=== PATIENT | male | born 1930 | race Hispanic/Latino ===

== ENCOUNTER → 2018-10-23 | Outpatient (CLI) | payer MEDICARE, MEDICAID | END | disposition home or self-care (01) | LOC: OIH 13:28 | PROVIDERS: ATTEND Internal Medicine | DX: M24.812 Other specific joint derangements of left shoulder, not elsewhere classified (principal) | CPT/HCPCS: 73030 ==

== ENCOUNTER 2019-05-27 16:30 | Inpatient (IN) | payer MEDICARE ==
[2019-05-26 21:50] VITALS: BP 147/85
[~2019-05-27] VITALS: Ht 165.1 cm; Wt 66.4 kg
[2019-05-27] MEDS ORDERED: ONDANSETRON HCL 4 MG/2 ML VIAL ONE (17:18)
[2019-05-27] MEDS ORDERED: SODIUM CHLORIDE 0.9% 1000ML 1,000 ML IV ONE ×2 (17:18→18:59)
[2019-05-27 17:52] LABS: BASOPHILS % (AUTO) 0.1 % (0.0-5.0); EOSINOPHILS % (AUTO) 0.1 % (0.0-8.0); HEMATOCRIT 34.7 % (42-54); MEAN CORPUSCULAR HEMOGLOBIN 35.3 pg (27.0-33.0); MEAN CORPUSCULAR HGB CONC 34.4 g/dL (32.0-36.0); MEAN CORPUSCULAR VOLUME 102.6 fL (79-99); MONOCYTES % (AUTO) 9.2 % (3.0-13.0); NEUTROPHILS % (AUTO) 79.6 % (40.0-77.0); PLATELET COUNT (AUTO) 382 K/uL (130-400); RED BLOOD CELL COUNT(AUTO) 3.38 MIL/uL (4.50-6.20); WHITE BLOOD COUNT (AUTO) 8.9 K/uL (4.8-10.8)
[2019-05-27 17:59] LABS: POTASSIUM 3.1 mmol/L (3.5-5.1)
[2019-05-27 18:08] LABS: ALBUMIN 3.6 g/dL (3.5-5.0); BILIRUBIN,TOTAL 0.7 mg/dL (0.2-1.0); TOTAL PROTEIN, SERUM 9.5 g/dL (6.0-8.3)
[2019-05-27] MEDS ORDERED: CEFTRIAXONE SODIUM 1 GM ONE (18:44)
[2019-05-27] MEDS ORDERED: POTASSIUM BICARB/CIT AC 25 MEQ TABLET.EFF ONE (18:44)
[2019-05-27] MEDS ORDERED: SODIUM CHLORIDE 0.9% 100 ML IV ONE (18:46)
[2019-05-27] MEDS ORDERED: VANCOMYCIN PROTOCOL PER PHARMACY IV SCH (19:00)
[2019-05-27] MEDS ORDERED: COMPOUND IV REFRIGERATED 1 EACH IVSOLN MISC PRN (19:00)
[2019-05-27] MEDS ORDERED: VANCOMYCIN 1.25 GM in SODIUM CHLORIDE 0.9% 250 ML IV ONE (20:00)
[2019-05-27 21:50] VITALS: BP 147/85
[2019-05-27] MEDS ORDERED: SIMV-43 PO (22:03)
[2019-05-27] MEDS ORDERED: LEVO75TA10 PO (22:03)
[2019-05-27] MEDS ORDERED: PANT40TA25 PO (22:03)
[2019-05-27] MEDS ORDERED: AMLO5TAB9 PO (22:03)
[2019-05-27] MEDS ORDERED: SUCR1TAB2 PO (22:03)
[2019-05-27] MEDS ORDERED: LISI-613 PO (22:03)
[2019-05-27] MEDS: SODIUM CHLORIDE 0.9% 1000ML 1,000 ML IV SCH (22:36)
[2019-05-28] VITALS (7 sets, daily range): BP systolic 105–155; BP diastolic 58–86
[2019-05-28] MEDS: METRONIDAZOLE 500MG/100ML BAG 100 ML IVPB SCH ×5 (00:01→20:28)
--- NOTE | 2019-05-28 03:24 | NUR ---
SLEEP Pt slept well.Denies pain or sob.
[2019-05-28] MEDS: SODIUM CHLORIDE 0.9% 1000ML 1,000 ML IV SCH ×3 (05:00→20:34)
[2019-05-28 05:05] LABS: HEMATOCRIT 30.3 % (42-54); MEAN CORPUSCULAR HEMOGLOBIN 34.4 pg (27.0-33.0); MEAN CORPUSCULAR HGB CONC 34.1 g/dL (32.0-36.0); MEAN CORPUSCULAR VOLUME 100.7 fL (79-99); PLATELET COUNT (AUTO) 323 K/uL (130-400); RED BLOOD CELL COUNT(AUTO) 3.01 MIL/uL (4.50-6.20); RED CELL DISTRIBUTION WIDTH 13.9 % (11.0-15.5); WHITE BLOOD COUNT (AUTO) 6.5 K/uL (4.8-10.8)
[2019-05-28 05:22] LABS: BILIRUBIN,URINE Negative (NEGATIVE); COLOR,URINE Yellow (YELLOW); GLUCOSE, URINE (UA) Negative (NEGATIVE); KETONES,URINE Negative (NEGATIVE); LEUKOCYTE ESTERASE ,URINE Negative (NEGATIVE); NITRATE,URINE Negative (NEGATIVE); OCCULT BLOOD,URINE Negative (NEGATIVE); PH,URINE 5.5 (5.0-8.0); PROTEIN,URINE POS 2+ mg/dL (NEGATIVE); UROBILINOGEN,URINE 0.2 mg/dL (0.2-1.0)
[2019-05-28 05:22] LABS: BAND NEUTROPHILS % (MANUAL) 34 % (0-2); LYMPHOCYTES % (MANUAL) 10 % (22-44); MAN.DIFF COMMENT-IMPRESSION MANUAL DIFFERENTIAL; MONOCYTES % (MANUAL) 4 % (2-9); PLATELET MORPHOLOGY COMMENT ADEQUATE; SEGMENTED NEUTROPHILS % 52 % (40-70)
[2019-05-28 05:23] LABS: APPEARANCE,URINE CLEAR (CLEAR)
[2019-05-28 05:25] LABS: ALBUMIN 2.8 g/dL (3.5-5.0); BILIRUBIN,TOTAL 0.5 mg/dL (0.2-1.0); CREATININE 2.5 mg/dL (0.5-1.5); MAGNESIUM 1.9 mg/dL (1.80-2.40); POTASSIUM 3.4 mmol/L (3.5-5.1); TOTAL PROTEIN, SERUM 7.6 g/dL (6.0-8.3)
[2019-05-28] MEDS ORDERED: LEVOTHYROXINE 75 MCG TABLET ONE (06:06)
[2019-05-28] MEDS: LEVOTHYROXINE 75 MCG TABLET PO SCH (07:30)
[2019-05-28] MEDS ORDERED: POTASSIUM CHLORIDE 10% ELIXIR 20 MEQ/15 ML UDCUP PO SCH (09:00)
[2019-05-28] MEDS: PANTOPRAZOLE SODIUM 40 MG TABLET.DR PO SCH ×2 (09:26→16:20)
[2019-05-28] MEDS: SUCRALFATE 1 GM TABLET PO SCH ×4 (09:26→20:29)
[2019-05-28] MEDS: AMLODIPINE BESYLATE 5 MG TAB PO SCH (09:27)
--- NOTE | 2019-05-28 14:58 | NUR ---
RD NOTIFICATION DX: GASTROENTERITIS, HTN, [place]. DIET: CLEAR LIQUIDS. PO INTAKE 50% AND HAS FAIR APPETITE PER PT. LBM: 05/27 AND STATED HE HAS BEEN HAVING GREEN LIQUID STOOLS X3DAYS NOW. PT STATED HAVING EMESIS, NAUSEA AND DIARRHEA. PT EXPERIENCING PAIN ON ONE SIDE OF HIS ABDOMEN. SISTER COOKS FOR PT AT HOME AND PT USUALLY EATS [address] RECOMMENDS TO OFFER ENSURE CLEAR WITH MEALS. ADVANCE DIET TOLERATED WHEN MEDICALLY FEASIBLE. RD WILL CONTINUE TO MONITOR AND FOLLOW UP NEEDED. THANK YOU. Addendum: 05/28/19 at [address] RD Amended: Links added.
--- NOTE | 2019-05-28 18:03 | NUR ---
cm note met with patient. and daughter, pt resides at home with daughter, independent with adls and ambulation, no dme. has provider 3hrs daily. dc plan is back home no dc needs. Addendum: 05/28/19 at 1805 by LEVI LIU CM Amended: Links added.
[2019-05-28] MEDS: SIMVASTATIN 20 MG TABLET PO SCH (20:29)
[2019-05-28] MEDS: LISINOPRIL 20 MG TABLET PO SCH (20:29)
[2019-05-28] MEDS: LOPERAMIDE 1 MG/7.5 ML UDCUP PO PRN (22:49)
[2019-05-29] MEDS: METRONIDAZOLE 500MG/100ML BAG 100 ML IVPB SCH ×3 (04:14→20:26)
[2019-05-29 04:25] VITALS: BP 120/69
[2019-05-29 05:35] LABS: HEMATOCRIT 27.7 % (42-54); MEAN CORPUSCULAR HEMOGLOBIN 34.9 pg (27.0-33.0); MEAN CORPUSCULAR HGB CONC 34.1 g/dL (32.0-36.0); MEAN CORPUSCULAR VOLUME 102.3 fL (79-99); PLATELET COUNT (AUTO) 270 K/uL (130-400); RED CELL DISTRIBUTION WIDTH 13.7 % (11.0-15.5); WHITE BLOOD COUNT (AUTO) 6.3 K/uL (4.8-10.8)
[2019-05-29 05:40] LABS: CREATININE 1.4 mg/dL (0.5-1.5)
[2019-05-29 05:44] LABS: POTASSIUM 2.6 mmol/L (3.5-5.1)
[2019-05-29 05:54] LABS: BASOPHILS % (MANUAL) 1 % (0-2); LYMPHOCYTES % (MANUAL) 18 % (22-44); MAN.DIFF COMMENT-IMPRESSION MANUAL DIFFERENTIAL; MONOCYTES % (MANUAL) 12 % (2-9); SEGMENTED NEUTROPHILS % 69 % (40-70)
[2019-05-29 05:55] LABS: PLATELET MORPHOLOGY COMMENT ADEQUATE
[2019-05-29] MEDS ORDERED: POTASSIUM CHLORIDE 20MEQ/100ML 100 ML IV PRN (06:00)
[2019-05-29] MEDS ORDERED: LIDOCAINE HCL-MPF 1% 2ML VIAL IV PRN ×2 (06:00)
[2019-05-29] MEDS: PANTOPRAZOLE SODIUM 40 MG TABLET.DR PO SCH ×2 (06:08→15:54)
[2019-05-29] MEDS: LEVOTHYROXINE 75 MCG TABLET PO SCH (06:09)
[2019-05-29] MEDS: POTASSIUM CHLORIDE 20 MEQ ERTAB PO PRN ×2 (06:09→21:21)
[2019-05-29] MEDS: SUCRALFATE 1 GM TABLET PO SCH ×4 (06:09→20:26)
[2019-05-29] MEDS: POTASSIUM CHLORIDE 20MEQ/100ML 100 ML IV PRN ×2 (06:10→12:11)
--- NOTE | 2019-05-29 06:21 | NUR ---
ULTRASOUND Abdominal Ultrasound at bedside per tech.
[2019-05-29 08:00] VITALS: BP 135/68
[2019-05-29] MEDS: AMLODIPINE BESYLATE 5 MG TAB PO SCH (09:19)
[2019-05-29] MEDS: POTASSIUM CHLORIDE 10% ELIXIR 20 MEQ/15 ML UDCUP PO PRN ×2 (09:24→12:10)
--- NOTE | 2019-05-29 10:54 | NUR ---
STOOL CULTURE ADRIEN FROM LAB CALLED WITH RESULTS ON STOOL CULTURE, POSSIBLE SALMONELLA SPECIES, PENDING IDENTIFICATION AND SENSITIVITIES. CALLED DR LINDSEY OFFICE TO REPORT THIS RESULTS, DR ACEVES WAS NO AVAILABLE AT THE MOMENT SO I LEFT A MESSAGE WITH HIS STAFF. PENDING CALLBACK FROM DR. ACEVES.
[2019-05-29 11:17] VITALS: BP 130/75
[2019-05-29 16:00] VITALS: BP 122/73
[2019-05-29] MEDS ORDERED: VANCOMYCIN 750MG + NS 250 ML IV SCH ×2 (18:00)
[2019-05-29] MEDS: SODIUM CHLORIDE 0.9% 1000ML 1,000 ML IV SCH (18:31)
[2019-05-29] MEDS: LOPERAMIDE 1 MG/7.5 ML UDCUP PO PRN (18:31)
[2019-05-29] MEDS: LISINOPRIL 20 MG TABLET PO SCH (20:26)
[2019-05-29] MEDS: SIMVASTATIN 20 MG TABLET PO SCH (20:26)
[2019-05-29 20:50] VITALS: BP 143/75
[2019-05-29 23:20] VITALS: BP 142/78
[2019-05-30] MEDS: METRONIDAZOLE 500MG/100ML BAG 100 ML IVPB SCH ×2 (04:24→12:05)
[2019-05-30 04:42] VITALS: BP 133/78
[2019-05-30 05:57] LABS: HEMATOCRIT 25.3 % (42-54); MEAN CORPUSCULAR HEMOGLOBIN 34.5 pg (27.0-33.0); MEAN CORPUSCULAR HGB CONC 34.2 g/dL (32.0-36.0); MEAN CORPUSCULAR VOLUME 100.7 fL (79-99); PLATELET COUNT (AUTO) 262 K/uL (130-400); RED BLOOD CELL COUNT(AUTO) 2.52 MIL/uL (4.50-6.20); WHITE BLOOD COUNT (AUTO) 6.8 K/uL (4.8-10.8)
[2019-05-30 06:11] LABS: BAND NEUTROPHILS % (MANUAL) 8 % (0-2); BASOPHILS % (MANUAL) 1 % (0-2); LYMPHOCYTES % (MANUAL) 16 % (22-44); MAN.DIFF COMMENT-IMPRESSION MANUAL DIFFERENTIAL; MONOCYTES % (MANUAL) 10 % (2-9); REACTIVE LYMPHOCYTES 2 % (0-0); SEGMENTED NEUTROPHILS % 63 % (40-70)
[2019-05-30 06:14] LABS: MAGNESIUM 1.6 mg/dL (1.80-2.40); POTASSIUM 3.1 mmol/L (3.5-5.1)
[2019-05-30] MEDS: SODIUM CHLORIDE 0.9% 1000ML 1,000 ML IV SCH (06:26)
[2019-05-30] MEDS: POTASSIUM CHLORIDE 20 MEQ ERTAB PO PRN ×4 (06:39→17:10)
[2019-05-30] MEDS: LEVOTHYROXINE 75 MCG TABLET PO SCH (06:39)
[2019-05-30] MEDS: PANTOPRAZOLE SODIUM 40 MG TABLET.DR PO SCH ×2 (06:39→17:09)
[2019-05-30] MEDS: SUCRALFATE 1 GM TABLET PO SCH ×3 (06:39→17:09)
[2019-05-30] MEDS ORDERED: MAGNESIUM 2GM PREMIX 50ML 50 ML IV PRN (06:45)
[2019-05-30 07:00] VITALS: BP 144/79
[2019-05-30] MEDS: AMLODIPINE BESYLATE 5 MG TAB PO SCH (09:27)
--- NOTE | 2019-05-30 09:41 | NUR ---
potassim level 3.1 20 meq kcl po given; magnesium level 1.6 2 gm ivpb initiated to run over 2 hours
[2019-05-30 11:00] VITALS: BP 144/81
[2019-05-30 16:00] VITALS: BP 143/79
[2019-05-30 18:11] LABS: POTASSIUM 3.8 mmol/L (3.5-5.1)
== END 2019-05-30 19:20 | disposition home or self-care (01) | DRG 683 ==
LOC: EDH 16:30 → EDHIP 18:30 → 3CH 21:35
PROVIDERS: ADMIT Family Medicine; ATTEND Family Medicine
DX: N17.9 Acute kidney failure, unspecified (principal); K55.1 Chronic vascular disorders of intestine; R19.7 Diarrhea, unspecified; I10 Essential (primary) hypertension; E86.0 Dehydration; D64.9 Anemia, unspecified; E05.90 Thyrotoxicosis, unspecified without thyrotoxic crisis or storm; E78.5 Hyperlipidemia, unspecified; E87.6 Hypokalemia; I25.10 Atherosclerotic heart disease of native coronary artery without angina pectoris; K44.9 Diaphragmatic hernia without obstruction or gangrene; K82.8 Other specified diseases of gallbladder; I25.2 Old myocardial infarction; Z95.1 Presence of aortocoronary bypass graft; Z87.891 Personal history of nicotine dependence; Z87.11 Personal history of peptic ulcer disease; Z82.49 Family history of ischemic heart disease and other diseases of the circulatory system
CPT/HCPCS: 36415; 74176; 76700; 80048; 80053; 81003; 83690; 83735; 84132; 84484; 85025; 87040; 87046; 87077; 87088; 87186; 87324; 93005; G0378; J0696; J2405; J3370; J3475; J3480; J3490; J7030

== ENCOUNTER → 2019-06-28 | Outpatient (CLI) | payer MEDICARE ==
[~2019-06-28] MED LIST: AMLO5TAB9 PO; LEVO75TA10 PO; LISI-613 PO; PANT40TA25 PO; SIMV-43 PO; SUCR1TAB2 PO
== END | disposition home or self-care (01) ==
LOC: RAH 07:39
PROVIDERS: ATTEND Internal Medicine
DX: K40.90 Unilateral inguinal hernia, without obstruction or gangrene, not specified as recurrent (principal)
CPT/HCPCS: 76775

== ENCOUNTER → 2019-07-06 | Outpatient (CLI) | payer MEDICARE | END | disposition home or self-care (01) | LOC: RAH 08:48 | PROVIDERS: ATTEND Internal Medicine | DX: K40.90 Unilateral inguinal hernia, without obstruction or gangrene, not specified as recurrent (principal); I70.0 Atherosclerosis of aorta | CPT/HCPCS: 76700 ==